=== PATIENT | female | born 1975 | race Caucasian/White ===

== ENCOUNTER 2016-12-17 14:37 | Emergency (ER) | payer BC, OTHER ==
--- NOTE | 2016-12-17 15:33 | EDM.PDOC ---
ED HPI GENERAL MEDICAL PROBLEM - General Chief Complaint: ENT Problem Stated Complaint: LT EAR HURTS Time Seen by Provider: 12/17/16 15:28 Source of Information: Reports: Patient History Limitations: Reports: No Limitations - History of Present Illness INITIAL COMMENTS - FREE TEXT/NARRATIVE: HISTORY AND PHYSICAL: History of present illness: Patient is a 41-year-old female who presents to the emergency room with complaints of left ear pain. Reports that approximately 12 days ago she was a board a airplane and felt popping in her left ear since that time he has had pain and pressure has not been alleviated by [id number] nasal sprays or allergy medications. Apart she did have a dry mild cough with some sinus congestion. Any fever, chills, abdominal pain, nausea, vomiting or diarrhea. Has no other health concerns at this time Review of systems: As per history of present illness and below otherwise all systems reviewed and negative. Past medical history: As per history of present illness and as reviewed below otherwise noncontributory. Surgical history: As per history of present illness and as reviewed below otherwise noncontributory. Social history: No reported history of drug or alcohol abuse. Family history: As per history of present illness and as reviewed below otherwise noncontributory. Physical exam: Enteral: Nontoxic appearing 41-year-old female. Able to speak in full sentences without shortness of breath alert and oriented 3 HEENT: Atraumatic, normocephalic, pupils reactive, negative for conjunctival pallor or scleral icterus, mucous membranes moist, throat clear, mild erythema noted to the left tympanic membrane with good light reflex. Neck supple, nontender, trachea midline. Lungs: Clear to auscultation, breath sounds equal bilaterally, chest nontender. Dry cough noted Heart: S1S2, regular, negative for clicks, rubs, or JVD. Abdomen: Soft, nondistended, nontender. Negative for masses or hepatosplenomegaly. Negative for costovertebral tenderness. Pelvis: Stable nontender. Genitourinary: Deferred. Rectal: Deferred. Extremities: Atraumatic. Neurovascular unremarkable. Neuro: Awake, alert, oriented. Cranial nerves II through XII unremarkable. Cerebellum unremarkable. Motor and sensory unremarkable throughout. Exam nonfocal. Due to the patient's attempts of clearing the fluid behind the left tympanic membrane is with xxfq-wba-[id number] nasal spray and allergy medication coupled with her concerns of sinus congestion and pressure and dry cough - like to treat her with Augmentin. Patient is agreeable to plan of care and also requests Diflucan to prevent yeast infection. Diagnostics: [] Therapeutics: [] Impression: Otalgia, sinusitis Definitive disposition and diagnosis as appropriate pending reevaluation and review of above. Duration: Day(s): (12) ED ROS GENERAL - Review of Systems Review Of Systems: ROS reveals no pertinent complaints other than HPI. ED EXAM, GENERAL - Physical Exam Exam: See Below (See dictation) Departure - Departure Time of Disposition: 15:32 Disposition: Home, Self-Care 01 Clinical Impression: Otalgia Qualifiers: Laterality: left Qualified Code(s): H92.02 - Otalgia, left ear Sinusitis Qualifiers: Sinusitis location: unspecified location Chronicity: subacute Qualified Code(s) : J01.90 - Acute sinusitis, unspecified - Discharge Information Referrals: PCP,None [Primary Care Provider] - Additional Instructions: The following information is given to patients seen in the emergency department who are being discharged to home. This information is to outline your options for follow-up care. We provide all patients seen in our emergency department with a follow-up referral. The need for follow-up, as well as the timing and circumstances, are variable depending upon the specifics of your emergency department visit. If you don't have a primary care physician on staff, we will provide you with a referral. We always advise you to contact your personal physician following an emergency department visit to inform them of the circumstance of the visit and for follow-up with them and/or the need for any referrals to a consulting specialist. The emergency department will also refer you to a specialist when appropriate. This referral assures that you have the opportunity for followup care with a specialist. All of these measure are taken in an effort to provide you with optimal care, which includes your followup. Under all circumstances we always encourage you to contact your private physician who remains a resource for coordinating your care. When calling for followup care, please make the office aware that this follow-up is from your recent emergency room visit. If for any reason you are refused follow-up, please contact the [facility] emergency department at and ask to speak to the emergency department charge nurse. [facility] Primary care- [place] [address] 1. Please take your antibiotic as prescribed. As we discussed it would like you to picking tech a steroid nasal spray such as Flonase and use this twice a day for the next 5 days. 2. Follow-up with her primary care provider in the next 1-2 days. Return to the ED as needed as discussed
[2016-12-17 16:12] VITALS: BP 121/57
== END 2016-12-17 15:38 | disposition home or self-care (01) ==
LOC: MW.ED 14:37
DX: H92.02 Otalgia, left ear (principal); J01.90 Acute sinusitis, unspecified
CPT/HCPCS: 99282; 99283